=== PATIENT | female | born 2000 | race African-American/Black ===

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

== ENCOUNTER 2020-02-27 04:23 | Observation (INO) | payer OTHER, MEDICAID ==
[~2020-02-27] VITALS: Ht 152.4 cm; Wt 81.6 kg
[2020-02-27] MEDS ORDERED: LACTATED RINGER'S 1,000 ML IV SCH (04:42)
[2020-02-27] MEDS ORDERED: LACTATED RINGER'S 1,000 ML IV ONE (04:42)
[2020-02-27] MEDS: TERBUTALINE SULFATE 1 MG/ML 1ML VIAL SC SCH ×3 (04:58→06:00)
[2020-02-27 05:42] LABS: Urine Bacteria MOD /hpf (None Seen); Urine Blood 1+ /uL (Negative); Urine Mucus FEW (None Seen); Urine Specific Gravity 1.019 (1.001-1.035); Urine WBC 306 /hpf (0 - 5)
[2020-02-27 06:11] LABS: Amphetamine Screen, Urine NEGATIVE (NEGATIVE); Barbiturate Scree,Urine NEGATIVE (NEGATIVE); Benzodiazephine Screen, Urine NEGATIVE (NEGATIVE); Cannabinoid Screen, Urine NEGATIVE (NEGATIVE); Cocaine Screen, Urine NEGATIVE (NEGATIVE); Opiate Scree,Urine NEGATIVE (NEGATIVE); Phencyclidine Screen, Urine NEGATIVE (NEGATIVE)
== END 2020-02-27 07:44 | disposition home or self-care (01) | DRG 566 ==
LOC: LDRP 04:23
PROVIDERS: ADMIT Specialist; ATTEND Specialist
DX: O23.43 Unspecified infection of urinary tract in pregnancy, third trimester (principal); Z3A.33 33 weeks gestation of pregnancy
CPT/HCPCS: 59025; 80307; 81001; 81002; 96360; 96372; G0378; J3105